=== PATIENT | male | born 1960 | race Caucasian/White ===

== ENCOUNTER 2020-08-02 17:38 | Inpatient (IN) ==
[2020-08-02] MEDS ORDERED: D5% in Water 1,000 ML IVC PRN (19:58)
[2020-08-02] MEDS ORDERED: Dextrose Gel 15 GM/37.5 ML TUBE PO PRN ×2 (19:58)
[2020-08-02] MEDS ORDERED: *HR* Dextrose 50 % in Water (Vial) 50 ML VIAL IVP PRN (19:58)
[2020-08-02] MEDS ORDERED: Insulin LISPRO 300 UNITS/3 ML VIAL SUBQ SCH (21:00)
[2020-08-02] MEDS ORDERED: Insulin DETEMIR 100 UNIT/ML per UNIT SUBQ ONE (21:00)
[2020-08-02] MEDS: Ipratropium 1 PUFF INHALER IH SCH (21:12)
[2020-08-02] MEDS: Insulin LISPRO 300 UNITS/3 ML VIAL SUBQ SCH (21:15)
[2020-08-02] MEDS: *HR* Metformin 500 MG TABLET PO SCH (21:16)
[2020-08-02] MEDS: Gabapentin 300 MG CAPSULE PO SCH (21:17)
[2020-08-02] MEDS ORDERED: Ipratropium/Albuterol Neb 3 ML IH SCH (22:00)
[2020-08-03] MEDS: Ipratropium 1 PUFF INHALER IH SCH ×4 (04:38→20:10)
[2020-08-03 06:18] LABS: Basophils % 0.4 %; Hematocrit 42.7 % (37.5-50.1); Hemoglobin 14.2 g/dL (12.9-16.9); Immature Granulocytes % 4.3 % (0-4); Lymphocytes # 1.2 K/mcL (0.6-4.6); Lymphocytes % 13.1 %; Mean Corpuscular HGB Conc 33.3 g/dL (31.6-35.5); Mean Corpuscular Hemoglobin 27.8 pg (28.0-33.3); Mean Corpuscular Volume 83.7 fL (83.0-100.0); Mean Platelet Volume 9.1 fL (9.4-12.4); Monocytes # 0.7 K/mcL (0.0-1.3); Monocytes % 7.5 %; Neutrophils # 6.9 K/mcL (1.6-8.9); Platelet Count 219 K/mcL (140-400); Red Cell Distribution Width 13.3 % (11.5-14.5); Segmented Neutrophils % 74.7 %; White Blood Count 9.2 K/mcL (4.3-11.1)
[2020-08-03 06:49] LABS: BUN/Creatinine Ratio 36 (6-26); Blood Urea Nitrogen 22 mg/dL (8-23); Calcium 8.7 mg/dL (8.6-10.3); Carbon Dioxide 24 mEq/L (23-29); Chloride 101 mEq/L (98-107); Glucose 287 mg/dL (70-105); Magnesium 2.1 mg/dL (1.6-2.6); Osmolality,Calculated 292 (280-300); Potassium 3.7 mEq/L (3.5-5.1); Sodium 134 mEq/L (136-145); eGFR For African Americans > 60 (> 60); eGFR For Non-African Americans > 60 (> 60)
[2020-08-03] MEDS: Insulin LISPRO 300 UNITS/3 ML VIAL SUBQ SCH ×4 (09:28→22:11)
[2020-08-03] MEDS: hydroCHLOROthiazide 25 MG TABLET PO SCH (09:28)
[2020-08-03] MEDS: *HR* Metformin 500 MG TABLET PO SCH ×2 (09:29→22:10)
[2020-08-03] MEDS: lisinopriL 20 MG TABLET PO SCH (09:29)
[2020-08-03] MEDS: Gabapentin 300 MG CAPSULE PO SCH ×2 (09:29→22:09)
[2020-08-03] MEDS: dexAMETHasone 4 MG TABLET PO SCH (09:29)
[2020-08-03 10:45] LABS: C-Reactive Protein 25 mg/L (Less than 10)
[2020-08-03] MEDS: Insulin DETEMIR 100 UNIT/ML X5UNITS SUBQ SCH ×2 (12:28→22:10)
[2020-08-04] MEDS: levoFLOXacin 750 MG/150 ML 750 MG/150 ML BAG IVPB SCH ×2 (01:58→16:53)
[2020-08-04] MEDS: Ipratropium 1 PUFF INHALER IH SCH ×4 (03:36→19:50)
[2020-08-04] MEDS: *HR* Enoxaparin 40 MG/0.4 ML SYRINGE SQ SCH (05:38)
[2020-08-04 06:05] LABS: Hematocrit 42.1 % (37.5-50.1); Mean Corpuscular HGB Conc 33.3 g/dL (31.6-35.5); Mean Corpuscular Hemoglobin 27.8 pg (28.0-33.3); Mean Corpuscular Volume 83.5 fL (83.0-100.0); Platelet Count 235 K/mcL (140-400); Red Blood Count 5.04 M/mcL (4.19-5.50); Red Cell Distribution Width 13.2 % (11.5-14.5)
[2020-08-04 06:28] LABS: Alanine Aminotransferase 16 Units/L (7-52); Albumin/Globulin Ratio 0.9 (1.1-2.2); Alkaline Phosphatase 84 Units/L (34-104); Aspartate Amino Transferase 21 Units/L (13-39); BUN/Creatinine Ratio 30 (6-26); Bilirubin,Total 0.5 mg/dL (0.3-1.0); Blood Urea Nitrogen 17 mg/dL (8-23); Calcium 8.7 mg/dL (8.6-10.3); Carbon Dioxide 27 mEq/L (23-29); Chloride 99 mEq/L (98-107); Globulin 3.3 g/dL (2.4-3.5); Glucose 256 mg/dL (70-105); Osmolality,Calculated 286 (280-300); Potassium 3.7 mEq/L (3.5-5.1); Sodium 133 mEq/L (136-145); Total Protein 6.3 g/dL (6.4-8.9); eGFR For African Americans > 60 (> 60); eGFR For Non-African Americans > 60 (> 60)
[2020-08-04] MEDS: hydroCHLOROthiazide 25 MG TABLET PO SCH (08:38)
[2020-08-04] MEDS: Gabapentin 300 MG CAPSULE PO SCH ×2 (08:39→22:16)
[2020-08-04] MEDS: dexAMETHasone 4 MG TABLET PO SCH (08:39)
[2020-08-04] MEDS: *HR* Metformin 500 MG TABLET PO SCH ×2 (08:39→22:16)
[2020-08-04] MEDS: lisinopriL 20 MG TABLET PO SCH (08:39)
[2020-08-04] MEDS: Insulin LISPRO 300 UNITS/3 ML VIAL SUBQ SCH ×7 (08:40→22:17)
[2020-08-04] MEDS: Insulin DETEMIR 100 UNIT/ML X5UNITS SUBQ SCH ×2 (08:40→22:18)
[2020-08-04 09:06] LABS: Ferritin 1096 ng/mL (20-250)
[2020-08-05] MEDS: Ipratropium 1 PUFF INHALER IH SCH ×4 (03:51→21:56)
[2020-08-05] MEDS: *HR* Enoxaparin 40 MG/0.4 ML SYRINGE SQ SCH (04:46)
[2020-08-05] MEDS: hydroCHLOROthiazide 25 MG TABLET PO SCH (09:47)
[2020-08-05] MEDS: *HR* Metformin 500 MG TABLET PO SCH ×2 (09:47→21:17)
[2020-08-05] MEDS: Gabapentin 300 MG CAPSULE PO SCH ×2 (09:47→21:18)
[2020-08-05] MEDS: lisinopriL 20 MG TABLET PO SCH (09:48)
[2020-08-05] MEDS: Insulin LISPRO 300 UNITS/3 ML VIAL SUBQ SCH ×7 (09:48→21:19)
[2020-08-05] MEDS: Insulin DETEMIR 100 UNIT/ML X5UNITS SUBQ SCH ×2 (09:48→21:18)
[2020-08-05] MEDS: dexAMETHasone 4 MG TABLET PO SCH (09:48)
[2020-08-05] MEDS: levoFLOXacin 750 MG/150 ML 750 MG/150 ML BAG IVPB SCH (17:16)
[2020-08-06] MEDS: Ipratropium 1 PUFF INHALER IH SCH ×4 (03:43→21:55)
[2020-08-06] MEDS: *HR* Enoxaparin 40 MG/0.4 ML SYRINGE SQ SCH (05:38)
[2020-08-06 05:56] LABS: Hematocrit 43.4 % (37.5-50.1); Hemoglobin 14.6 g/dL (12.9-16.9); Mean Corpuscular HGB Conc 33.6 g/dL (31.6-35.5); Mean Corpuscular Hemoglobin 28.1 pg (28.0-33.3); Mean Corpuscular Volume 83.5 fL (83.0-100.0); Mean Platelet Volume 8.9 fL (9.4-12.4); Platelet Count 230 K/mcL (140-400); Red Cell Distribution Width 13.2 % (11.5-14.5); White Blood Count 9.2 K/mcL (4.3-11.1)
[2020-08-06 06:12] LABS: BUN/Creatinine Ratio 21 (6-26); Blood Urea Nitrogen 13 mg/dL (8-23); Calcium 9.1 mg/dL (8.6-10.3); Carbon Dioxide 28 mEq/L (23-29); Chloride 98 mEq/L (98-107); Glucose 262 mg/dL (70-105); Osmolality,Calculated 289 (280-300); Potassium 4.1 mEq/L (3.5-5.1); Sodium 135 mEq/L (136-145); eGFR For African Americans > 60 (> 60); eGFR For Non-African Americans > 60 (> 60)
[2020-08-06] MEDS: hydroCHLOROthiazide 25 MG TABLET PO SCH (08:33)
[2020-08-06] MEDS: Gabapentin 300 MG CAPSULE PO SCH ×2 (08:34→21:16)
[2020-08-06] MEDS: *HR* Metformin 500 MG TABLET PO SCH ×2 (08:34→21:16)
[2020-08-06] MEDS: lisinopriL 20 MG TABLET PO SCH (08:34)
[2020-08-06] MEDS: dexAMETHasone 4 MG TABLET PO SCH (08:34)
[2020-08-06] MEDS: Insulin DETEMIR 100 UNIT/ML X5UNITS SUBQ SCH ×2 (08:35→21:16)
[2020-08-06] MEDS: Insulin LISPRO 300 UNITS/3 ML VIAL SUBQ SCH ×7 (08:35→21:16)
[2020-08-06 12:10] LABS: Ferritin 801 ng/mL (20-250)
[2020-08-06 12:18] LABS: C-Reactive Protein 19 mg/L (Less than 10)
[2020-08-06] MEDS: levoFLOXacin 750 MG/150 ML 750 MG/150 ML BAG IVPB SCH (17:11)
[2020-08-06] MEDS ORDERED: Mag Hydrox/Al Hydrox/Simeth 30 ML UDC PO PRN (19:45)
[2020-08-07] MEDS: Ipratropium 1 PUFF INHALER IH SCH ×3 (04:04→14:56)
[2020-08-07] MEDS: *HR* Enoxaparin 40 MG/0.4 ML SYRINGE SQ SCH (05:38)
[2020-08-07 08:00] VITALS: BP 143/90
[2020-08-07] MEDS: hydroCHLOROthiazide 25 MG TABLET PO SCH (09:11)
[2020-08-07] MEDS: *HR* Metformin 500 MG TABLET PO SCH (09:11)
[2020-08-07] MEDS: dexAMETHasone 4 MG TABLET PO SCH (09:11)
[2020-08-07] MEDS: Gabapentin 300 MG CAPSULE PO SCH (09:12)
[2020-08-07] MEDS: Insulin LISPRO 300 UNITS/3 ML VIAL SUBQ SCH ×4 (09:12→12:25)
[2020-08-07] MEDS: lisinopriL 20 MG TABLET PO SCH (09:12)
[2020-08-07] MEDS: Insulin DETEMIR 100 UNIT/ML X5UNITS SUBQ SCH (09:33)
== END 2020-08-07 16:00 | disposition home health service (06) | DRG 177 ==
LOC: INPGRE 18:40
PROVIDERS: ADMIT Family Medicine; ATTEND Family Medicine